=== PATIENT | female | born 1990 ===

== ENCOUNTER 2016-05-21 13:04 | Outpatient (RCR) | payer MEDICAID ==
[~2016-05-21 13:04] MED LIST: ATOR10TA PO; CETI-262 PO; CLOZ100T7 PO; FERR-74 PO; FLUT16SP NS; HYDR-3702 PO; MINO50TA PO; MNTL10T PO; TOPI-27 PO
== END 2016-08-19 | disposition home or self-care (01) ==
LOC: DT 13:04
PROVIDERS: ATTEND Family Medicine
DX: E13.65 Other specified diabetes mellitus with hyperglycemia (principal); E66.01 Morbid (severe) obesity due to excess calories; Z68.41 Body mass index [BMI] 40.0-44.9, adult
CPT/HCPCS: 97802

== ENCOUNTER → 2016-11-05 | Outpatient (REF) | payer MEDICAID ==
[2016-11-05 11:27] LABS: BASOPHILS % (AUTO) 0 % (0-2); EOSINOPHILS % (AUTO) 0 % (0-4); LYMPHOCYTES # (AUTO) 2.6 X10^3; MEAN CORPUSCULAR VOLUME 80 FL (80-100); MEAN PLATELET VOLUME 11.6 FL (6.0-9.5); MONOCYTES # (AUTO) 0.5 X10^3; MONOCYTES % (AUTO) 7 % (3-11); NEUTROPHILS # (AUTO) 3.8 X10^3; NEUTROPHILS % (AUTO) 55 % (51-67); PLATELET COUNT 211 10^3uL (150-450); WHITE BLOOD COUNT 6.87 10^3uL (4.0-11.0)
[2016-11-05 11:28] LABS: MEAN CORPUSCULAR HEMOGLOBIN 25.4 PG (26.0-34.0)
== END ==
LOC: LAB 11:01
PROVIDERS: ATTEND Family Medicine
DX: D50.8 Other iron deficiency anemias (principal); E13.65 Other specified diabetes mellitus with hyperglycemia
CPT/HCPCS: 83036; 85025